=== PATIENT | female | born 1950 | race Caucasian/White ===

== ENCOUNTER 2018-04-06 09:35 | Emergency (ER) | payer MEDICARE, MEDICAID ==
[~2018-04-06] VITALS: Ht 149.9 cm; Wt 58.1 kg
[2018-04-06 09:54] VITALS: BP_SYST 127
--- NOTE | 2018-04-06 10:00 | NUR ---
Patient to ER bed 2 to gown for evaluation. Side rails up.
[2018-04-06] MEDS ORDERED: NACL 0.9% 1,000 ML IV ONE (10:15)
[2018-04-06] MEDS ORDERED: DIPHENHYDRAMINE INJ 50 MG/ML VIAL IVP ONE (10:15)
[2018-04-06] MEDS ORDERED: ONDANSETRON HCL 4 MG/2 ML VIAL IVP ONE (10:15)
[2018-04-06] MEDS ORDERED: MORPHINE 4 MG/ML INJ. SYRINGE IVP ONE (10:15)
--- NOTE | 2018-04-06 10:15 | NUR ---
PT BIB FAMILY C/O UPPER ABD PAIN WITH H/O GALLSTONES. PT REPORTS NAUSEA AND DENIES VOMITING.
[2018-04-06] MEDS ORDERED: MORPHINE SULFATE 10 MG/ML VIAL IVP ONE (10:45)
--- NOTE | 2018-04-06 11:00 | NUR ---
MULTIPLE ATTEMPTS TO ESTABLISH IV ACCESS DONE BY SEVERAL RNs. PT TO RECEIVED US PLACEMENT.
--- NOTE | 2018-04-06 11:15 | NUR ---
EZRA PHIPPS AR BEDSIDE.
--- NOTE | 2018-04-06 11:30 | NUR ---
Patient transported to radiology via GURNEY, accompanied by RAD STAFF.
--- NOTE | 2018-04-06 11:45 | NUR ---
Returned from radiology, back to [facility].
--- NOTE | 2018-04-06 12:30 | NUR ---
PT TOLERATING MEDICATED WELL.CONTIUIG TO MONITOR.
[2018-04-06 12:31] LABS: BASOPHILS # (AUTO) 0.1 K/uL (0.0-0.2); BASOPHILS % (AUTO) 0.9 % (0.0-2.0); EOSINOPHILS # (AUTO) 0.2 K/uL (0.0-0.4); EOSINOPHILS % (AUTO) 2.6 % (0.0-4.0); HEMATOCRIT 33.3 % (36-48); HEMOGLOBIN 11.4 g/dL (12.0-16.0); LYMPHOCYTES # (AUTO) 2.4 K/uL (1.0-5.5); LYMPHOCYTES % (AUTO) 29.4 % (20.5-51.5); MEAN CORPUSCULAR HEMOGLOBIN 32 pg (27-31); MEAN CORPUSCULAR HGB CONC 34 % (32-36); MEAN CORPUSCULAR VOLUME 92 fL (79.0-98.0); MONOCYTES # (AUTO) 0.7 K/uL (0.0-1.0); NEUTROPHILS # (AUTO) 4.7 K/uL (1.8-7.7); NEUTROPHILS % (AUTO) 59.1 % (40.0-70.0); PLATELET COUNT (AUTO) 344 K/uL (130-430); RED CELL DISTRIBUTION WIDTH 12.2 % (9.0-15.0); WHITE BLOOD COUNT (AUTO) 8.1 K/uL (4.8-10.8)
[2018-04-06 12:41] LABS: CALCIUM 9.2 mg/dL (8.4-11.0); CREATININE 0.96 mg/dL (0.55-1.30); POTASSIUM 4.2 mmol/L (3.5-5.1)
[2018-04-06 12:57] LABS: ALBUMIN 2.9 g/dL (3.4-4.8); TOTAL BILIRUBIN 0.5 mg/dL (0.0-1.0)
--- NOTE | 2018-04-06 13:00 | NUR ---
PT REPORT PAIN RESOLVING. NO ACUTE DISTRESS NOTED.
[2018-04-06 14:04] VITALS: BP_SYST 128
--- NOTE | 2018-04-06 14:04 | NUR ---
Patient given written and verbal discharge instructions and verbalizes understanding. ER MD discussed with patient the results and treatment provided. Patient in stable condition. ID arm band removed. IV catheter removed intact and dressing applied, no active bleeding. Rx of NORCO given. Patient educated on pain management and to follow up with PMD. Pain Scale 0. Opportunity for questions provided and answered. Medication side effect fact sheet provided.
== END 2018-04-06 14:04 | disposition home or self-care (01) ==
LOC: SED 09:35
DX: K80.20 Calculus of gallbladder without cholecystitis without obstruction (principal); J45.909 Unspecified asthma, uncomplicated; I25.2 Old myocardial infarction; E11.9 Type 2 diabetes mellitus without complications; I10 Essential (primary) hypertension; Z90.89 Acquired absence of other organs
CPT/HCPCS: 36415; 74018; 76700; 80053; 83690; 85025; 96374; 96375; 99285; J1200; J2270; J2405; J7030

== ENCOUNTER 2018-08-19 21:51 | Emergency (ER) | payer MEDICARE, MEDICAID ==
[~2018-08-19] VITALS: Ht 149.9 cm; Wt 56.7 kg
[2018-08-19 21:57] VITALS: BP_SYST 126
[2018-08-19] MEDS ORDERED: NACL 0.9% 1,000 ML IV ONE (22:03)
[2018-08-19] MEDS ORDERED: KETOROLAC TROMETHAMINE 30 MG VIAL IVP ONE (22:15)
[2018-08-19 22:45] LABS: BASOPHILS % (AUTO) 0.5 % (0.0-2.0); EOSINOPHILS # (AUTO) 0.3 K/uL (0.0-0.4); EOSINOPHILS % (AUTO) 4.1 % (0.0-4.0); HEMATOCRIT 30.9 % (36-48); HEMOGLOBIN 10.1 g/dL (12.0-16.0); LYMPHOCYTES # (AUTO) 2.1 K/uL (1.0-5.5); LYMPHOCYTES % (AUTO) 28.5 % (20.5-51.5); MEAN CORPUSCULAR HEMOGLOBIN 31 pg (27-31); MEAN CORPUSCULAR HGB CONC 33 % (32-36); MEAN CORPUSCULAR VOLUME 94 fL (79.0-98.0); MONOCYTES # (AUTO) 0.6 K/uL (0.0-1.0); MONOCYTES % (AUTO) 8.2 % (1.7-9.3); NEUTROPHILS # (AUTO) 4.4 K/uL (1.8-7.7); NEUTROPHILS % (AUTO) 58.7 % (40.0-70.0); PLATELET COUNT (AUTO) 303 K/uL (130-430); RED BLOOD CELL COUNT(AUTO) 3.27 MIL/uL (4.2-6.2); RED CELL DISTRIBUTION WIDTH 12.3 % (9.0-15.0); WHITE BLOOD COUNT (AUTO) 7.4 K/uL (4.8-10.8)
[2018-08-19 22:50] LABS: BILIRUBIN,URINE NEGATIVE (NEGATIVE); BLOOD, URINE NEGATIVE (NEGATIVE); CLARITY/URINE CLEAR (CLEAR); COLOR,URINE YELLOW (YELLOW); GLUCOSE,URINE NEGATIVE (NEGATIVE); KETONES,URINE NEGATIVE (NEGATIVE); LEUKOCYTE ESTERASE ,URINE NEGATIVE (NEGATIVE); NITRITE, URINE NEGATIVE (NEGATIVE); PH,URINE 7.5 (5.0-8.0); PROTEIN URINE NEGATIVE (NEGATIVE)
[2018-08-19 22:51] LABS: INR 0.9 (0.8-1.2); PROTHROMBIN TIME 9.1 SECS (9.5-12.5)
[2018-08-19 22:52] LABS: CALCIUM 8.7 mg/dL (8.4-11.0); CREATININE 1.28 mg/dL (0.55-1.30); POTASSIUM 4.1 mmol/L (3.5-5.1)
[2018-08-19 22:56] LABS: ALBUMIN 2.9 g/dL (3.4-4.8); TOTAL BILIRUBIN 0.2 mg/dL (0.0-1.0)
[2018-08-20] MEDS ORDERED: KETOROLAC TROMETHAMINE 30 MG VIAL ONE (01:08)
--- NOTE | 2018-08-20 02:00 | NUR ---
Pt is alert and oriented. Pt C/O left hand pain for 3 to 4 days. Left hand is appears red and swollen. Pain is described as dull/throbbing, 7/10. No other complaints noted. Will continue to monitor.
--- NOTE | 2018-08-20 02:00 | NUR ---
Patient to ER bed 3 to gown for evaluation. Side rails up.
--- NOTE | 2018-08-20 02:01 | NUR ---
ER Dr. Rodriguez at bedside examining patient.
[2018-08-20 02:33] VITALS: BP_SYST 121
--- NOTE | 2018-08-20 02:33 | NUR ---
Patient given written and verbal discharge instructions and verbalizes understanding. ER MD discussed with patient the results and treatment provided. Patient in stable condition. ID arm band removed. IV catheter removed intact and dressing applied, no active bleeding. Rx of Tylenol and Keflex given. Patient educated on pain management and to follow up with PMD. Pain Scale 0. Opportunity for questions provided and answered. Medication side effect fact sheet provided.
== END 2018-08-20 02:33 | disposition home or self-care (01) ==
LOC: SED 21:51
DX: L03.114 Cellulitis of left upper limb (principal); J45.909 Unspecified asthma, uncomplicated; E11.9 Type 2 diabetes mellitus without complications; I10 Essential (primary) hypertension; Z86.79 Personal history of other diseases of the circulatory system
CPT/HCPCS: 36415; 71045; 80053; 81003; 82150; 83605; 83690; 85025; 85610; 85730; 87040; 96374; 99284; J1885; J7030

== ENCOUNTER 2019-06-13 19:55 | Emergency (ER) | payer OTHER, MEDICAID ==
[~2019-06-13] VITALS: Ht 149.9 cm; Wt 66.7 kg
[2019-06-13 21:18] VITALS: BP_SYST 142
[2019-06-13] MEDS ORDERED: DIPH-TET-PERTUS Vaccine 0.5 ML VIAL (ADACEL) I.M. ONE (23:00)
[2019-06-13 23:40] VITALS: BP_SYST 142
== END 2019-06-13 23:40 | disposition home or self-care (01) ==
LOC: SED 19:55
DX: B35.3 Tinea pedis (principal); L03.116 Cellulitis of left lower limb; L03.115 Cellulitis of right lower limb; I10 Essential (primary) hypertension; E11.9 Type 2 diabetes mellitus without complications; J45.909 Unspecified asthma, uncomplicated
CPT/HCPCS: 90715; 99283

== ENCOUNTER 2019-07-01 13:43 | Emergency (ER) | payer OTHER, MEDICAID ==
[~2019-07-01] VITALS: Ht 149.9 cm; Wt 63.5 kg
--- NOTE | 2019-07-01 13:43 | NUR ---
Patient to ER bed 03 for evaluation. Side rails up.
[2019-07-01 13:53] VITALS: BP_SYST 136
--- NOTE | 2019-07-01 13:55 | NUR ---
PT AAOx4 AMBULATED INTO ED C/O 02/01 PAIN TO L KNEE S/P TRIP AND FALL X 5 DAYS AGO. DENIES KO/N/V/D/BLURRED VISION. NO ACTIVE BLEEDING/NO DEFORMITIES NOTED. NO OTHER INJURIES/COMPLAINTS PER PT/NOTED. WILL CONTINUE TO MONITOR.
--- NOTE | 2019-07-01 14:12 | NUR ---
ER Dr. Mcgee at bedside examining patient.
--- NOTE | 2019-07-01 14:46 | NUR ---
Patient given written and verbal discharge instructions and verbalizes understanding. ER MD Mcgee discussed with patient the results and treatment provided. Patient in stable condition. ID arm band removed. No Rx given. MD Mcgee instructed pt to continue home pain medications. Patient educated on pain management and to follow up with PMD. Pain Scale 3. Opportunity for questions provided and answered. Medication side effect fact sheet provided.
[2019-07-01 14:48] VITALS: BP_SYST 134
== END 2019-07-01 14:46 | disposition home or self-care (01) ==
LOC: SED 13:43
DX: S83.92XA Sprain of unspecified site of left knee, initial encounter (principal); J45.909 Unspecified asthma, uncomplicated; I10 Essential (primary) hypertension; E11.9 Type 2 diabetes mellitus without complications; W01.0XXA Fall on same level from slipping, tripping and stumbling without subsequent striking against object, initial encounter; Y93.89 Activity, other specified; Y92.89 Other specified places as the place of occurrence of the external cause; Y99.8 Other external cause status
CPT/HCPCS: 73564; 99283

== ENCOUNTER 2019-07-12 22:22 | Emergency (ER) | payer OTHER, MEDICAID ==
[~2019-07-12] VITALS: Ht 147.3 cm; Wt 63.5 kg
[2019-07-12 22:50] VITALS: BP_SYST 115
[2019-07-13] MEDS ORDERED: CEPHALEXIN 500 MG CAPSULE PO ONE (02:00)
[2019-07-13] MEDS ORDERED: HYDROcodone/ACETAMIN 7.5-325 MG TAB PO ONE (02:00)
[2019-07-13 02:20] VITALS: BP_SYST 116
== END 2019-07-13 02:20 | disposition home or self-care (01) ==
LOC: SED 22:22
DX: S69.91XA Unspecified injury of right wrist, hand and finger(s), initial encounter (principal); L03.011 Cellulitis of right finger; J45.909 Unspecified asthma, uncomplicated; E11.9 Type 2 diabetes mellitus without complications; I10 Essential (primary) hypertension; F17.210 Nicotine dependence, cigarettes, uncomplicated; W22.8XXA Striking against or struck by other objects, initial encounter; Y93.89 Activity, other specified; Y92.89 Other specified places as the place of occurrence of the external cause; Y99.8 Other external cause status
CPT/HCPCS: 73140-TC; 99283

== ENCOUNTER 2020-05-09 19:24 | Emergency (ER) | payer OTHER, MEDICAID ==
[~2020-05-09] VITALS: Ht 149.9 cm; Wt 61.2 kg
--- NOTE | 2020-05-09 19:38 | NUR ---
Patient to ER bed 08 to gown for evaluation. Side rails up.
[2020-05-09 19:39] VITALS: BP_SYST 126
--- NOTE | 2020-05-09 19:45 | NUR ---
ER at bedside examining patient.
--- NOTE | 2020-05-09 19:48 | NUR ---
Pt reports b/l arm rash w/ reddness and itchness x 1 week. Pt states feeling crawling feeling on arms. Pt reports using meth x 1 week ago. Denies Fever, sob, cough.
--- NOTE | 2020-05-09 20:05 | NUR ---
Pt moved to bed 01
[2020-05-09] MEDS ORDERED: DIPHENHYDRAMINE HCL 25 MG CAPSULE PO ONE (20:15)
[2020-05-09] MEDS ORDERED: predniSONE 20 MG TABLET PO ONE (20:15)
[2020-05-09 20:27] VITALS: BP_SYST 126
--- NOTE | 2020-05-09 20:27 | NUR ---
Patient given written and verbal discharge instructions and verbalizes understanding. ER MD discussed with patient the results and treatment provided. Patient in stable condition. ID arm band removed. Rx of Benadryl and prednisone given. Patient educated on pain management and to follow up with PMD. Opportunity for questions provided and answered. Medication side effect fact sheet provided.
== END 2020-05-09 20:27 | disposition home or self-care (01) ==
LOC: SED 19:24
DX: R21 Rash and other nonspecific skin eruption (principal); F15.90 Other stimulant use, unspecified, uncomplicated; J45.909 Unspecified asthma, uncomplicated; I10 Essential (primary) hypertension; E11.9 Type 2 diabetes mellitus without complications; I25.2 Old myocardial infarction
CPT/HCPCS: 99283; J7512; Q0163